=== PATIENT | female | born 1960 | race Caucasian/White ===

== ENCOUNTER 2018-08-19 06:28 | Day surgery (SDC) | payer OTHER ==
[~2018-08-19] VITALS: Ht 154.9 cm; Wt 76.7 kg
[2018-08-19] MEDS ORDERED: HYDR-3320 PO (07:10)
[2018-08-19] MEDS ORDERED: LIDOCAINE 2% 100 MG/5 ML UJET TP ONE (07:51)
[2018-08-19] MEDS ORDERED: KETOROLAC 30 MG/ML VIAL ONE (07:51)
== END 2018-08-19 08:53 | disposition home or self-care (01) ==
LOC: MDS 06:28 → MMU 06:31 → MDS 08:53
PROVIDERS: ATTEND Internal Medicine Gastroenterology
DX: Z12.11 Encounter for screening for malignant neoplasm of colon (principal); K57.30 Diverticulosis of large intestine without perforation or abscess without bleeding; D12.3 Benign neoplasm of transverse colon; I10 Essential (primary) hypertension; Z98.890 Other specified postprocedural states; Z90.49 Acquired absence of other specified parts of digestive tract; Z79.82 Long term (current) use of aspirin; Z79.899 Other long term (current) drug therapy; Z68.30 Body mass index [BMI] 30.0-30.9, adult; Z87.891 Personal history of nicotine dependence; Z79.01 Long term (current) use of anticoagulants
CPT/HCPCS: 45385; J1885

== ENCOUNTER 2019-11-12 15:56 | Emergency (ER) | payer OTHER ==
[~2019-11-12] VITALS: Ht 154.9 cm; Wt 76.7 kg
[~2019-11-12 15:56] MED LIST: HYDR-3320 PO
[2019-11-12 16:05] VITALS: BP 96/67
--- NOTE | 2019-11-12 16:15 | NUR ---
59 Y/O FEMALE C/O DIZZINESS, HEADACHE, AND GENERALIZED WEAKNESS X 3 WKS. +N/V FOR THE PAST 3 DAYS. DENIES DIARRHEA. 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 PT SPOKE TO ONCOLOGIST TODAY AND TOLD HER TO PRESENT TO ER. RR EVEN AND UNLABORED, CALM AND PLEASANT. VSS. FAMILY AT BEDSIDE MEDHX: NONHODGKINS LYMPHOMA ALLERGIES: NKA
[2019-11-12] MEDS ORDERED: NACL 0.9% 1,000 ML IV ONE (16:20)
[2019-11-12] MEDS ORDERED: MORPHINE SULFATE 4 MG/ML SYR IVP ONE (16:20)
[2019-11-12] MEDS ORDERED: ONDANSETRON 4 MG/2 ML VIAL IVP ONE (16:20)
--- NOTE | 2019-11-12 16:21 | NUR ---
PT TO CT VIA [facility]
--- NOTE | 2019-11-12 16:30 | NUR ---
DR LUTZ AT BEDSIDE EXAMINING PT.
[2019-11-12 16:49] LABS: BASOPHILS # (AUTO) 0.1 K/uL (0.00-0.22); BASOPHILS % (AUTO) 0.6 % (0.0-2.0); EOSINOPHILS % (AUTO) 0.3 % (0.0-4.0); HEMATOCRIT 42.9 % (36-48); HEMOGLOBIN 14.5 g/dL (12.0-16.0); LYMPHOCYTES # (AUTO) 1.3 K/uL (2.5-16.5); LYMPHOCYTES % (AUTO) 12.2 % (20.5-51.1); MEAN CORPUSCULAR HEMOGLOBIN 32 pg (27-31); MEAN CORPUSCULAR HGB CONC 34 g/dL (33-37); MEAN CORPUSCULAR VOLUME 95.6 fL (80-94); MONOCYTES # (AUTO) 0.6 K/uL (0.8-1.0); MONOCYTES % (AUTO) 5.2 % (1.7-9.3); NEUTROPHILS % (AUTO) 81.7 % (42.2-75.2); PLATELET COUNT (AUTO) 307 K/uL (140-450); RED BLOOD CELL COUNT(AUTO) 4.49 MIL/uL (4.20-5.40); RED CELL DISTRIBUTION WIDTH 13.6 % (11.6-13.7)
[2019-11-12 17:09] LABS: ALBUMIN 3.9 g/dL (3.4-5.0); ANION GAP 14.3 (8-16); CARBON DIOXIDE 29.5 mmol/L (21-32); CREATININE 1.2 mg/dL (0.6-1.3); POTASSIUM 3.8 mmol/L (3.5-5.1); THYROID STIMULATING HORMONE 1.81 uIU/mL (0.34-3.74); TOTAL BILIRUBIN 0.3 mg/dL (0.0-1.0)
[2019-11-12 18:09] LABS: APPEARANCE,URINE CLEAR (CLEAR); BILIRUBIN,URINE NEGATIVE (NEGATIVE); BLOOD, URINE NEGATIVE (NEGATIVE); COLOR,URINE YELLOW (YELLOW); LEUKOCYTE ESTERASE ,URINE 1+ (NEGATIVE); NITRITE, URINE NEGATIVE (NEGATIVE); PH,URINE 7.5 (5.0-9.0); UGLUCOSE NEGATIVE (NEGATIVE)
[2019-11-12 18:25] LABS: RBC,URINE 0-5 /HPF (0-5)
--- NOTE | 2019-11-12 18:45 | NUR ---
SITTING UPRIGHT IN BED AWAKE AND ALERT, DENIES PAIN AT THIS TIME. VSS. WILL CONTINUE TO MONITOR
[2019-11-12 18:53] VITALS: BP 103/77
--- NOTE | 2019-11-12 18:53 | NUR ---
Patient discharged with v/s stable. Written and verbal after care instructions given and explained. Patient alert, oriented and verbalized understanding of instructions. Ambulatory with steady gait. All questions addressed prior to discharge. ID band removed. Patient advised to follow up with PMD. Rx of keflex and debrox given. Patient educated on indication of medication including possible reaction and side effects. Opportunity to ask questions provided and answered.
== END 2019-11-12 18:53 | disposition home or self-care (01) ==
LOC: MED 15:56
DX: N39.0 Urinary tract infection, site not specified (principal); R53.1 Weakness; H91.90 Unspecified hearing loss, unspecified ear; Z88.5 Allergy status to narcotic agent; Z79.899 Other long term (current) drug therapy; Z98.890 Other specified postprocedural states; Z85.72 Personal history of non-Hodgkin lymphomas
CPT/HCPCS: 36415; 70450; 80053; 81001; 84443; 85025; 87086; 96360; 99284; J7030; J2270; J2405

== ENCOUNTER 2019-11-17 23:55 | Inpatient (IN) | payer OTHER ==
[~2019-11-17] VITALS: Ht 154.9 cm; Wt 81.2 kg
[2019-11-18 00:10] VITALS: BP 130/77
--- NOTE | 2019-11-18 00:10 | NUR ---
TO BED # 07 AMBULATORY
--- NOTE | 2019-11-18 00:20 | NUR ---
PT C/O VOMITING BILE AND 7/10 EPIGASTRIC PAIN STARTING LAST NIGHT. STATES SHE WAS HERE A FEW DAYS AGO FOR A UTI AND STARTED THE ABX FOR IT SUNDAY; BUT SHE IS UNABLE TO KEEP ANY LIQUIDS DOWN. STATES PRECIPITATING FACTORS INCLUDE OVEREATING YESTERDAY; AND SHE HAS BEEN VOMITING SINCE. DENIES TAKING ANYTHING FOR THE PAIN. REPORTS NORMAL BMS. DENIES DIFFICULTY URINATING. DENIES BACK OR CHEST PAIN. VITALLY STABLE. RESTING UPRIGHT ON SIDE IN [facility].
[2019-11-18] MEDS ORDERED: ONDANSETRON 4 MG/2 ML VIAL IVP ONE (01:15)
[2019-11-18 01:25] LABS: BASOPHILS % (AUTO) 0.2 % (0.0-2.0); EOSINOPHILS % (AUTO) 0.3 % (0.0-4.0); HEMATOCRIT 44.7 % (36-48); HEMOGLOBIN 14.9 g/dL (12.0-16.0); LYMPHOCYTES # (AUTO) 0.9 K/uL (2.5-16.5); MEAN CORPUSCULAR HEMOGLOBIN 33 pg (27-31); MEAN CORPUSCULAR HGB CONC 33 g/dL (33-37); MEAN CORPUSCULAR VOLUME 97.8 fL (80-94); MONOCYTES # (AUTO) 0.3 K/uL (0.8-1.0); MONOCYTES % (AUTO) 2.4 % (1.7-9.3); NEUTROPHILS % (AUTO) 90.5 % (42.2-75.2); PLATELET COUNT (AUTO) 305 K/uL (140-450); RED BLOOD CELL COUNT(AUTO) 4.57 MIL/uL (4.20-5.40); RED CELL DISTRIBUTION WIDTH 13.5 % (11.6-13.7); WHITE BLOOD COUNT (AUTO) 13.3 K/uL (4.8-10.8)
[2019-11-18 01:35] LABS: LYMPHOCYTES % (AUTO) 6.6 % (20.5-51.1)
[2019-11-18 01:44] LABS: ALBUMIN 3.6 g/dL (3.4-5.0); ANION GAP 14.2 (8-16); CARBON DIOXIDE 31.5 mmol/L (21-32); POTASSIUM 3.7 mmol/L (3.5-5.1); TOTAL BILIRUBIN 0.5 mg/dL (0.0-1.0)
--- NOTE | 2019-11-18 02:04 | NUR ---
PT SLEEPING ON SIDE IN GURNEY; VSS. DENIES NAUSEA OR PAIN. FAMILY AT BEDSIDE. PROMPTED TO TRY TO URINATE FOR SAMPLE; OBTAINED SAMPLE. STEADY GAIT, DENIES DIZZINESS OR LIGHTHEADEDNESS. WILL CONTINUE TO MONITOR.
[2019-11-18 02:47] LABS: APPEARANCE,URINE SLIGHTLY CLOUDY (CLEAR); COLOR,URINE YELLOW (YELLOW)
[2019-11-18 02:48] LABS: BILIRUBIN,URINE NEGATIVE (NEGATIVE); BLOOD, URINE TRACE (NEGATIVE); LEUKOCYTE ESTERASE ,URINE NEGATIVE (NEGATIVE); NITRITE, URINE NEGATIVE (NEGATIVE); UGLUCOSE NEGATIVE (NEGATIVE)
--- NOTE | 2019-11-18 02:49 | NUR ---
CT TRANSPORTING PT VIA WC
[2019-11-18 02:51] LABS: WBC,URINE 0-5 /HPF (0-5)
--- NOTE | 2019-11-18 03:42 | NUR ---
PT RESTING COMFORTABLY ON SIDE; FAMILY MEMBER AT BEDSIDE. VITALLY STABLE. NO SIGNIFICANT CHANGES. WILL CONTINUE TO MONITOR.
[2019-11-18] MEDS ORDERED: ASPI-1822 PO (05:18)
[2019-11-18] MEDS ORDERED: CEPH250C16 PO (05:23)
--- NOTE | 2019-11-18 05:37 | NUR ---
PT RESTING COMFORTABLY IN BED; REQUESTED ICE CHIPS TO WET MOUTH; OKAY'ED BY GAVE PT A COUPLE ICE CHIPS. DENIES PAIN, N/V. VSS. WILL CONTINUE TO MONITOR.
--- NOTE | 2019-11-18 07:23 | NUR ---
REPORT GIVEN TO SOSA DIOR
[2019-11-18] MEDS ORDERED: MAGNESIUM OXIDE 400 MG TAB PO PRN (07:45)
[2019-11-18] MEDS ORDERED: MAG SULF 2000 MG/WATER PREMIX 50 ML IV PRN (07:45)
[2019-11-18] MEDS ORDERED: POTASSIUM CHLORIDE 10 MEQ TABER PO PRN (07:45)
[2019-11-18] MEDS ORDERED: ACETAMINOPHEN 325 MG TAB PO PRN (07:45)
[2019-11-18] MEDS ORDERED: ACETAMINOPHEN 650 MG SUPP RC PRN (07:45)
[2019-11-18 07:50] VITALS: BP 145/67
--- NOTE | 2019-11-18 07:50 | NUR ---
RECEIVED PT FROM ER NURSE VIA WHEELCHAIR WITH , PT IS AWAKE, ALERT AND ORIENTED, AMBULATED TO THE BED WITH A PERIPHERAL LINE ON THE RT AC G. 20 ON SALINE LOCK, PT C/O PAIN RATE OF 7/10 ON HER MID-ABDOMEN, WILL MEDICATE, SKIN IS INTACT, V/S TAKEN AND BP IS 145/67, PULSE IS 69, TEMP. IS 98.1, O2 SATURATION IS 94% ON ROOM AIR, NO SIG OF DISTRESS NOTED AND WILL CONTINUE TO BE MONITORED.
--- NOTE | 2019-11-18 07:56 | NUR ---
Patient will be admitted to care of DR TORRES. Admited to MED SURG. Will go to [id number]. Belongings list completed. Report to [facility].
--- NOTE | 2019-11-18 08:00 | NUR ---
MRSA SWAB DONE AND SAMPLE WAS SENT TO LAB.
--- NOTE | 2019-11-18 08:30 | NUR ---
PAGED DR. ROWE TO NOTIFY MD OF PT PAIN RATE OF 04/02, AWAITING FOR MD CALL BACK.
--- NOTE | 2019-11-18 10:30 | NUR ---
PT IS IN THE BATHROOM NOW AND MADE A BOWEL MOVEMENT, SMALL AMOUNT AND SOFT.
--- NOTE | 2019-11-18 10:47 | NUR ---
Ice Skating Teacher Note: Basic Screen: Yes High Risk DC Screen [place]: FAY Crespo Relationship: Pre-Admission Living Arrangements: Lives with Other Prior ADL Independent Current Home Health Name/Tel: N/A Current DME/02 Name/Tel: N/A Current Hospice Name/Tel: N/A Current Dialysis Name/Tel: N/A Healthcare Decision Maker: Patient Advance Directive No - REFUSED Physician Orders for Life Sustaining Treatment Form No Patient/Family Have Educational Needs No Information Taught: Advance Directive Person Taught: Patient Teaching Tools: Verbal Factors Affecting Learning: None Participation Level: Refused Evaluation: Verbalizes Understanding Discipline: Case Mgt/Social Svcs Tentative Discharge Plan/Destination: No Needs Identified Will require assistance post discharge: No Referred to Commutator Tester: No Tentative Discharge Plan Summary: Patient is a 59-year-old female admitted for small bowel obstruction. Patient has PMHX of cancer (non-hodgekins lymphoma). Patient was admitted from home where she lives with her daughter, grandson, and . SW met with patient at bedside to verify demographics. Patient stated that she is independent with all ADLs and reports no history of mental health or substance abuse. Patient's tentative discharge plan is to return home. No further needs identified. Signature: COSMO Armendariz Date: Nov 18, 2019 Time: 10:45
--- NOTE | 2019-11-18 10:55 | NUR ---
DC PLANNIN YRS OLD FEMALE PATIENT WAS ADMITTED FROM HOME WITH A DX OF SMALL BOWEL OBSTRUCTION. PT HAS A HX OF CHOLECYSTECTOMY. CT ABD/PELVIS SHOWED PARTIAL SBO ,BILATERAL RENAL CYST ,UMBILICAL HERNIA AND COLONIC DIVERTICULITIS. ADMINISTERED AMPICILLIN ABX, ZOFRAN FOR N/V AND MORPHINE FO PAIN CONTROL AND GI CONSULT . DC PLAN TO GO HOME WHEN STABLE CM TO FOLLOW.
--- NOTE | 2019-11-18 11:35 | NUR ---
PAGED DR. ROWE ABOUT ADMISSION OF PT. AND PAIN RATE OF 04/02.
--- NOTE | 2019-11-18 11:54 | NUR ---
INFORMED CHARGE NURSE, THAT MD WAS PAGED TWICE ALREADY AND NO CALL BACK YET.
[2019-11-18 12:00] VITALS: BP 121/76
[2019-11-18] MEDS ORDERED: AMPICILLIN/SULBACTAM 3 GM in NACL 0.9% 100 ML IV SCH (12:00)
--- NOTE | 2019-11-18 15:18 | NUR ---
PATIENT HAS BEEN SCREENED AND CATEGORIZED MODERATE NUTRITION RISK. PATIENT WILL BE SEEN WITHIN 3-5 DAYS OF ADMISSION. 11/20/19 11/22/[address]
[2019-11-18 16:00] VITALS: BP 137/70
[2019-11-18] MEDS ORDERED: HYDROmorphone 1 MG/ML AMP IVP PRN (16:10)
[2019-11-18] MEDS: KETOROLAC 15 MG/ML VIAL IVP PRN ×2 (16:25→22:37)
--- NOTE | 2019-11-18 16:25 | NUR ---
PT C/O PAIN RATE OF 6/10 AND PAIN MEDICATION WAS GIVEN VIA IV PUSH, BP IS 137/70, PULSE IS 69, O2 SATURATION IS 97%, WILL RE-ASSESS PAIN AND MONITOR PT.
--- NOTE | 2019-11-18 16:30 | NUR ---
PT IS OFF THE UNIT NOW FOR A CHEST X-RAY.
--- NOTE | 2019-11-18 16:42 | NUR ---
PT IS BACK TO ROOM NOW FROM CHEST X-RAY.
--- NOTE | 2019-11-18 16:46 | NUR ---
DR. ROWE MADE A TELEPHONE ORDER TO START PT ON CLEAR LIQUID DIET AND ADVANCE DIET TOLERATED. VERIFIED AND READ BACK, WILL CARRY OUT.
[2019-11-18] MEDS: PANTOPRAZOLE 40 MG INJ VIAL IVP SCH (16:49)
[2019-11-18] MEDS: DEXT 5% / NACL 0.45% 1,000 ML IV SCH (16:49)
--- NOTE | 2019-11-18 16:49 | NUR ---
D5 1/2 NS WAS STARTED TO PT NOW, AND PROTONIX IV WAS GIVEN WELL VIA IV PUSH. WILL MONITOR PT.
--- NOTE | 2019-11-18 19:20 | NUR ---
ENDORSED PT TO CATALYST OPERATOR GASOLINE NURSE FOR CONTINUITY OF CARE.
--- NOTE | 2019-11-18 19:25 | NUR ---
RECEIVED PT IN STABLE CONDITION FROM AM NURSE. AWAKE,ALERT AND ORIENTED X4. MED SURG PT. WITH NO C/O ANY ABDOMINAL PAIN NOTED. AMBULATORY TO THE BATHROOM. IVF INFUSING WELL ON THE RT AC G#20 . CLEAR AND PATENT. PLAN OF CARE DISCUSSED AND VERBALIZED UNDERSTANDING. BED ON LOW POSITION. SIDE RAILS UP X2 AND CALL LIGHT PLACED WITHIN REACH. WILL CONTINUE TO MONITOR.
[2019-11-18] MEDS: ONDANSETRON 4 MG/2 ML VIAL IVP PRN (22:32)
--- NOTE | 2019-11-18 22:32 | NUR ---
PT VOMITED GREENISH LIQUIDS. MEDICATED WITH ZOFRAN IVP ORDERED. WILL CONTINUE TO MONITOR.
--- NOTE | 2019-11-19 00:15 | NUR ---
VITAL SIGNS STABLE. NO C/O ANY NAUSEA /VOMITING AT THIS TIME. WILL CONTINUE TO MONITOR.
[2019-11-19 00:30] VITALS: BP 130/70
--- NOTE | 2019-11-19 02:00 | NUR ---
ASLEEP. NO S/S ANY DISCOMFORT /PAIN NOTED. WILL CONTINUE TO MONITOR.
--- NOTE | 2019-11-19 04:00 | NUR ---
ASSISTED TO BATHROOM. NO C/O NAUSEA/VOMITING NOTED.
[2019-11-19] MEDS: DEXT 5% / NACL 0.45% 1,000 ML IV SCH ×2 (04:35→17:05)
--- NOTE | 2019-11-19 06:00 | NUR ---
ASLEEP. NO S/S OF ANY DISCOMFORT NOTED.
--- NOTE | 2019-11-19 07:25 | NUR ---
ENDORSED PT IN STABLE CONDITION TO AM NURSE FOR CONTINUITY OF CARE.
--- NOTE | 2019-11-19 07:30 | NUR ---
RECEIVED BEDSIDE REPORT FROM NIGHTSHIFT NURSE. PT RESTING IN BED UPON ARRIVAL. RESPIRATIONS EVEN AND UNLABORED WITH NO SOB OR RESPIRATORY DISTRESS. SKIN WARM AND DRY TO TOUCH. IV SITE IN RIGHT HAND 22G IS CLEAN, DRY, AND INTACT. SAFETY MEASURES IN PLACE. WILL CONTINUE TO MONITOR
[2019-11-19 07:43] LABS: BASOPHILS % (AUTO) 0.1 % (0.0-2.0); EOSINOPHILS # (AUTO) 0.1 K/uL (0-0.4); EOSINOPHILS % (AUTO) 0.8 % (0.0-4.0); HEMATOCRIT 38.9 % (36-48); HEMOGLOBIN 12.8 g/dL (12.0-16.0); LYMPHOCYTES # (AUTO) 1.3 K/uL (2.5-16.5); LYMPHOCYTES % (AUTO) 9.4 % (20.5-51.1); MEAN CORPUSCULAR HEMOGLOBIN 32 pg (27-31); MEAN CORPUSCULAR HGB CONC 33 g/dL (33-37); MEAN CORPUSCULAR VOLUME 97.9 fL (80-94); MONOCYTES # (AUTO) 1.2 K/uL (0.8-1.0); MONOCYTES % (AUTO) 8.7 % (1.7-9.3); PLATELET COUNT (AUTO) 270 K/uL (140-450); RED BLOOD CELL COUNT(AUTO) 3.97 MIL/uL (4.20-5.40); RED CELL DISTRIBUTION WIDTH 13.4 % (11.6-13.7); WHITE BLOOD COUNT (AUTO) 13.6 K/uL (4.8-10.8)
[2019-11-19 08:00] VITALS: BP 125/80
[2019-11-19 08:18] LABS: ANION GAP 9.7 (8-16); CARBON DIOXIDE 31.8 mmol/L (21-32); POTASSIUM 3.5 mmol/L (3.5-5.1); TOTAL BILIRUBIN 0.5 mg/dL (0.0-1.0)
[2019-11-19] MEDS: KETOROLAC 15 MG/ML VIAL IVP PRN ×3 (08:44→23:51)
[2019-11-19] MEDS: PANTOPRAZOLE 40 MG INJ VIAL IVP SCH (08:44)
[2019-11-19] MEDS: ONDANSETRON 4 MG/2 ML VIAL IVP PRN ×2 (08:44→15:04)
--- NOTE | 2019-11-19 08:49 | NUR ---
ADMINISTERED SCHED MED PRESCRIBED PER MD ORDER. PT TOLERATED WELL. MEDICATION EDUCATION PERFORMED. PT VERBALIZED UNDERSTANDING. SAFETY MEASURES IN PLACE. WILL CONTINUE TO MONITOR.
--- NOTE | 2019-11-19 10:30 | NUR ---
HOURLY ROUNDING. FAMILY AT BEDSIDE. PT RESTING IN BED UPON ARRIVAL. RESPIRATIONS EVEN AND UNLABORED WITH NO SOB OR RESPIRATORY DISTRESS. SKIN WARM AND DRY TO TOUCH. SAFETY MEASURES IN PLACE. WILL CONTINUE TO MONITOR
--- NOTE | 2019-11-19 12:19 | NUR ---
PT ASLEEP IN BED. RESPONSIVE TO VERBAL AND TACTILE STIMULI. ABLE TO MAKE NEEDS KNOWN. RESPIRATIONS EVEN AND UNLABORED WITH NO SOB OR RESPIRATORY DISTRESS. SKIN WARM AND DRY TO TOUCH. SAFETY MEASURES IN PLACE. WILL CONTINUE TO MONITOR
--- NOTE | 2019-11-19 13:54 | NUR ---
PT WHEELED OUT FOR X-RAY. SAFETY MEASURES IN PLACE. WILL CONTINUE TO MONITOR.
--- NOTE | 2019-11-19 14:15 | NUR ---
PT RETURNED FROM X-RAY. SAFETY MEASURES IN PLACE. WILL CONTINUE TO MONITOR.
--- NOTE | 2019-11-19 15:04 | NUR ---
PT COMPLAINED OF PAIN AND NAUSEA. PRN PAIN MEDICATION AND ANTINAUSEA MEDICATION ADMINISTERED ORESCRIBED PER MD ORDER. MEDICATION EDUCATION PERFORMED. PT VERBALIZED UNDERSTANDING. SAFETY MEASURES IN PLACE. WILL CONTINUE TO MONITOR.
--- NOTE | 2019-11-19 15:55 | NUR ---
ENDORSED TO ARTUR AT BEDSIDE. PT RESTING IN BED UPON ARRIVAL. RESPIRATIONS EVEN AND UNLABORED WITH NO SOB OR RESPIRATORY DISTRESS. SKIN WARM AND DRY TO TOUCH. SAFETY MEASURES IN PLACE. PT IS STABLE
[2019-11-19 16:00] VITALS: BP 127/66
--- NOTE | 2019-11-19 16:00 | NUR ---
RECEIVED PT FROM GRAHAM. PT IN BED, AAOX4 NO DISTRESS NOTED, DENIES PAIN. RESPIRATIONS EVEN AND UNLABORED ON ROOM AIR. IV IN PLACE IN RIGHT WRIST PATENT AND ASYMPTOMATIC, INFUSING PER ORDER. SKIN INTACT. SAFETY MEASURES IN PLACE. CALL LIGHT WITHIN REACH. WILL CONTINUE TO MONITOR.
--- NOTE | 2019-11-19 18:45 | NUR ---
NG TUBE INSERTED. AFTER INSERTION, DR ALONSO NOTICED PT WAS UNABLE TO BE SUCTIONED THROUGH NGT DUE TO FOLLOWTHROUGH PROCEDURE WITH CONTRAST. NGT STILL IN PLACE AT TIME OF ENDORSEMENT. SHANK PAPERER WILL TO EVALUATE WHETHER TO REMOVE NGT OR LEAVE IN PLACE. PT IN STABLE CONDITION
--- NOTE | 2019-11-19 19:15 | NUR ---
ENDORSED PT TO NIGHT NURSE IN STABLE CONDITION FOR CONTINUITY OF CARE.
--- NOTE | 2019-11-19 19:16 | NUR ---
RECD. RESTING IN BED, AWAKE, A/OX4. RESPIRATION EVEN AND UNLABORED. WITH NGT IN PLACED, RIGHT NARES WITH YELLOWISH FLUID. SPIV OF D51/2 NS AT 80 ML/HR INFUSING, RIGHT HAND G22. WAITING FOR KUB TO BE DONE TONIGHT. PLAN OF CARE FOR THE SHIFT DISCUSSED. VERBALIZED UNDERSTANDING. DENIES PAIN 0/10. SISTER AT THE BEDSIDE.
--- NOTE | 2019-11-19 20:00 | NUR ---
Patient's Plan of Care was discussed and reviewed with BACK STAYER: STEPHANIE GONZALEZ
--- NOTE | 2019-11-19 20:15 | NUR ---
SMALL BOWEL SERIES DONE BY HEAVY LIFT RIGGER.
--- NOTE | 2019-11-19 22:00 | NUR ---
INFORMED CHARGE NURSE OF RESULT OF KUB. PATIENT DOES NOT WANT NGT TO BE TAKEN OUT IF THERE'S A POSSIBILITY FOR IT TO BE PUT BACK TOMORROW. INFORMED SHE IS SCHEDULED FOR SURGERY TOMORROW AT 1030.
[2019-11-20] VITALS: BP 107/63
[2019-11-20 04:59] LABS: PROTHROMBIN TIME 10.1 secs (10.8-13.4)
[2019-11-20 05:01] LABS: ALBUMIN 2.9 g/dL (3.4-5.0); CARBON DIOXIDE 32.2 mmol/L (21-32); POTASSIUM 3.2 mmol/L (3.5-5.1); TOTAL BILIRUBIN 0.4 mg/dL (0.0-1.0)
[2019-11-20 05:08] LABS: BASOPHILS % (AUTO) 0.3 % (0.0-2.0); EOSINOPHILS # (AUTO) 0.1 K/uL (0-0.4); EOSINOPHILS % (AUTO) 1.7 % (0.0-4.0); HEMATOCRIT 35.2 % (36-48); HEMOGLOBIN 12.3 g/dL (12.0-16.0); LYMPHOCYTES # (AUTO) 1.7 K/uL (2.5-16.5); LYMPHOCYTES % (AUTO) 22.4 % (20.5-51.1); MEAN CORPUSCULAR HEMOGLOBIN 33 pg (27-31); MEAN CORPUSCULAR HGB CONC 35 g/dL (33-37); MONOCYTES # (AUTO) 0.7 K/uL (0.8-1.0); MONOCYTES % (AUTO) 9.7 % (1.7-9.3); NEUTROPHILS % (AUTO) 65.9 % (42.2-75.2); PLATELET COUNT (AUTO) 243 K/uL (140-450); RED BLOOD CELL COUNT(AUTO) 3.75 MIL/uL (4.20-5.40); RED CELL DISTRIBUTION WIDTH 13.2 % (11.6-13.7); WHITE BLOOD COUNT (AUTO) 7.5 K/uL (4.8-10.8)
[2019-11-20] MEDS: DEXT 5% / NACL 0.45% 1,000 ML IV SCH ×2 (05:35→14:34)
--- NOTE | 2019-11-20 05:50 | NUR ---
K LEVEL - 3.2, MEDICATED WITH K-DUR 40 MEQ VIA NGT.
--- NOTE | 2019-11-20 07:14 | NUR ---
CONDITION REMAIN STABLE. ENDORSED TO AM SHIFT NURSE FOR CONTINUITY OF CARE.
--- NOTE | 2019-11-20 07:15 | NUR ---
RECEIVED REPORT FROM NIGHT NURSE. PT IN STABLE CONDITION, NO DISTRESS NOTED, DENIES PAIN AT THIS TIME. SKIN INTACT. ABDOMEN DISTENSION. RESPIRATIONS EVEN AND UNLABORED ON ROOM AIR. IV IN PLACE PATENT AND ASYMPTOMATIC INFUSING PER ORDER. SAFETY MEASURES IN PLACE. CALL LIGHT WITHIN REACH, BED IN LOW POSITION. WILL CONTINUE TO MONITOR.
[2019-11-20 08:00] VITALS: BP 113/62
--- NOTE | 2019-11-20 09:30 | NUR ---
RECEIVED CALL FROM DR ALONSO. SINCE WBC ARE NORMAL, PT HAD 2 LARGE BOWEL MOVEMENTS, PAIN HAS DECREASED AND 1700ML OUT OF NGT SUCTION, EX LAP SURGERY FOR TODAY CANCELED PER DR ALONSO. WILL CONTINUE TO MONITOR PT.
[2019-11-20] MEDS: PANTOPRAZOLE 40 MG INJ VIAL IVP SCH (09:50)
--- NOTE | 2019-11-20 11:41 | NUR ---
MEDICATIONS ADMINISTERED PER ORDER. PT TOLERATED WELL, NO DISTRESS NOTED. REPORTS PAIN AT TOLERABLE LEVEL. RESPIRATIONS EVEN AND UNLABORED ON ROOM AIR. WILL CONTINUE TO MONITOR.
[2019-11-20] MEDS: LEVOFLOXACIN 750 MG/D5W PREMIX 150 ML IV SCH (12:12)
--- NOTE | 2019-11-20 13:51 | NUR ---
PT IN BED AWAKE WITH FAMILY MEMBERS AT THE BEDSIDE. SAFETY MEASURES IN PLACE. CALL LIGHT WITHIN REACH, WILL CONTINUE TO MONITOR.
[2019-11-20] MEDS: metroNIDAZOLE 500 MG/NS PREMIX 100 ML IV SCH ×2 (14:35→22:53)
[2019-11-20] MEDS ORDERED: KCL 20 MEQ/WATER INJ PREMIX 200 ML IV PRN (14:35)
--- NOTE | 2019-11-20 15:15 | NUR ---
MEDICATIONS ADMINISTERED PER ORDER, PT TOLERATED WELL. NO DISTRESS NOTED, PAIN REPORTED AT TOLERABLE LEVEL. SAFETY MEASURES IN PLACE. CALL LIGHT WITHIN REACH, WILL CONTINUE TO MONITOR.
[2019-11-20 16:00] VITALS: BP 104/55
--- NOTE | 2019-11-20 17:23 | NUR ---
PT IN BED AWAKE IN COMPANY OF FAMILY MEMBERS. NO DISTRESS NOTED, DENIES PAIN. SAFETY MEASURES IN PLACE. CALL LIGHT WITHIN REACH, WILL CONTINUE TO MONITOR.
--- NOTE | 2019-11-20 19:21 | NUR ---
PT ENDORSED TO NIGHT NURSE FOR CONTINUITY OF CARE.
--- NOTE | 2019-11-20 19:22 | NUR ---
RECD. RESTING IN BED, AWAKE, A/OX4. RESPIRATION EVEN AND UNLABORED. NGT IN PLACED, CONNECTED TO LOW INTERMITTENT SUCTION, DRAINING VERY MINIMAL AMOUNT OF GREENISH FLUID. IV OF D5 1/2 NS AT 80 ML/HR, RIGHT HAND G22. ABDOMEN SOFT, NON-TENDER. PLAN OF CARE FOR THE SHIFT DISCUSSED. VERBALIZED UNDERSTANDING. DENIES PAIN 0/10. AT THE BEDSIDE.
--- NOTE | 2019-11-20 21:00 | NUR ---
SITTING IN BED, WANTS NGT TO BE TAKEN OUT, ADVISED TO WAIT UNTIL TOMORROW TO BE ABLE TO OBSERVE OUTPUT.
--- NOTE | 2019-11-20 23:40 | NUR ---
PLAN OF CARE DISCUSSED WITH STEPHANIE GONZALEZ LVN.
[2019-11-21] VITALS: BP 127/65
--- NOTE | 2019-11-21 | NUR ---
SLEEPING COMFORTABLY IN BED.
--- NOTE | 2019-11-21 02:00 | NUR ---
AWAKE IN BED, CHECKED NGT, ALREADY OUT. ACCIDENTALLY PULLED OUT NGT. MINIMAL NGT OUTPUT NOTED, 50 ML SINCE BEGINNING OF SHIFT.
--- NOTE | 2019-11-21 04:00 | NUR ---
ASSISTED OUT OF BED TO VOID IN THE BR. BACK TO BED AFTER VOIDING. ADVISED TO GO BACK TO SLEEP.
[2019-11-21] MEDS: metroNIDAZOLE 500 MG/NS PREMIX 100 ML IV SCH ×2 (05:57→15:58)
--- NOTE | 2019-11-21 07:00 | NUR ---
CONDITION REMAIN STABLE. WILL ENDORSED TO AM SHIFT NURSE FOR CONTINUITY OF CARE.
[2019-11-21 07:08] LABS: BASOPHILS % (AUTO) 0.2 % (0.0-2.0); EOSINOPHILS # (AUTO) 0.2 K/uL (0-0.4); EOSINOPHILS % (AUTO) 2.5 % (0.0-4.0); HEMATOCRIT 36.6 % (36-48); HEMOGLOBIN 12.8 g/dL (12.0-16.0); LYMPHOCYTES # (AUTO) 1.4 K/uL (2.5-16.5); LYMPHOCYTES % (AUTO) 15.9 % (20.5-51.1); MEAN CORPUSCULAR HEMOGLOBIN 33 pg (27-31); MEAN CORPUSCULAR HGB CONC 35 g/dL (33-37); MEAN CORPUSCULAR VOLUME 94.2 fL (80-94); MONOCYTES # (AUTO) 0.8 K/uL (0.8-1.0); MONOCYTES % (AUTO) 9.2 % (1.7-9.3); NEUTROPHILS # (AUTO) 6.4 K/uL (1.8-7.7); NEUTROPHILS % (AUTO) 72.2 % (42.2-75.2); PLATELET COUNT (AUTO) 263 K/uL (140-450); RED BLOOD CELL COUNT(AUTO) 3.88 MIL/uL (4.20-5.40); RED CELL DISTRIBUTION WIDTH 13.2 % (11.6-13.7); WHITE BLOOD COUNT (AUTO) 8.8 K/uL (4.8-10.8)
--- NOTE | 2019-11-21 07:15 | NUR ---
RECEIVED REPORT FROM DE ICER NURSE STEPHANIE FOR CONTINUITY OF CARE. PT IN STABLE CONDITION. RESPIRATIONS EVEN AND UNLABORED, ROOM AIR. IV INTACT AND PATENT. SAFETY MEASURES IN PLACE. BED IN LOW POSITION. CALL LIGHT AT BEDSIDE. WILL CONTINUE TO MONITOR.
[2019-11-21 07:41] LABS: ALBUMIN 2.8 g/dL (3.4-5.0); CARBON DIOXIDE 29.7 mmol/L (21-32); POTASSIUM 3.7 mmol/L (3.5-5.1); TOTAL BILIRUBIN 0.3 mg/dL (0.0-1.0)
[2019-11-21] MEDS ORDERED: POTASSIUM CHL 20 MEQ/NACL 0.9% 1,000 ML IV SCH (07:50)
[2019-11-21 08:00] VITALS: BP 126/69
[2019-11-21] MEDS: PANTOPRAZOLE 40 MG INJ VIAL IVP SCH (10:01)
[2019-11-21] MEDS: LEVOFLOXACIN 750 MG/D5W PREMIX 150 ML IV SCH (12:40)
--- NOTE | 2019-11-21 15:50 | NUR ---
CONTACTED DR. ALONSO REGARDING DR. ROWE'S D/C ORDER IF OKAY WITH GENERAL SX. DR. ALONSO'S MEDICAL STUDENT WILL PASS ON THE MESSAGE (DR. ALONSO IS IN SX RIGHT NOW AND WILL CALL US BACK). RAPHAEL ASSIGNED MADE AWARE.
--- NOTE | 2019-11-21 16:05 | NUR ---
11/21/19 RD INITIAL ASSESSMENT COMPLETED PLEASE REFER TO NUTRITION ASSESSMENT UNDER CARE ACTIVITY FOR ESTIMATED NUTRITIONAL NEEDS. 1. CONTINUE FULL LIQUID DIET TOLERATED 2. IF/WHEN MEDICALLY STABLE GRADUALLY ADVANCE TO SOFT CARDIAC DIET 3. RD TO FOLLOW-UP 3-5 DAYS, MODERATE RISK NICK WELLS, LEONA
--- NOTE | 2019-11-21 19:15 | NUR ---
RECEIVED REPORT FROM INSTALL TECHNICIAN NURSE STEPHANIE FOR CONTINUITY OF CARE. PT IN STABLE CONDITION. RESPIRATIONS EVEN AND UNLABORED, ROOM AIR. IV INTACT AND PATENT. SAFETY MEASURES IN PLACE. BED IN LOW POSITION. CALL LIGHT AT BEDSIDE. WILL CONTINUE TO MONITOR. Addendum: 11/21/19 at 2003 by Ranjana Dela Cruz RN WRONG DOCUMENTATION
== END 2019-11-21 18:30 | disposition home or self-care (01) | DRG 247 ==
LOC: MED 23:55 → MTU 11-18 05:49
PROVIDERS: ADMIT Hospitalist; ATTEND Hospitalist
PROC: 0D9670Z Drainage of Stomach with Drainage Device, Via Natural or Artificial Opening (ICD-10-PCS; principal; 2019-11-19)
DX: K56.600 Partial intestinal obstruction, unspecified as to cause (principal); J69.0 Pneumonitis due to inhalation of food and vomit; C85.90 Non-Hodgkin lymphoma, unspecified, unspecified site; K76.0 Fatty (change of) liver, not elsewhere classified; K52.9 Noninfective gastroenteritis and colitis, unspecified; E66.9 Obesity, unspecified; E87.6 Hypokalemia; D72.829 Elevated white blood cell count, unspecified; E78.5 Hyperlipidemia, unspecified; I10 Essential (primary) hypertension; K27.9 Peptic ulcer, site unspecified, unspecified as acute or chronic, without hemorrhage or perforation; N39.0 Urinary tract infection, site not specified; Z90.49 Acquired absence of other specified parts of digestive tract; Z68.33 Body mass index [BMI] 33.0-33.9, adult; Z79.899 Other long term (current) drug therapy; Z88.5 Allergy status to narcotic agent
CPT/HCPCS: 36415; 71046; 74018; 74250; 80053; 81001; 83690; 85025; 85610; 85730; 86886; 86900; 86901; 87081; 87086; 93005; 96374; 99285; C9113; J0295; J1170; J1885; J1956; J2405; J3480; J3490; J7030; Q0092; Q9967

== ENCOUNTER 2020-04-08 13:24 | Emergency (ER) | payer OTHER ==
[~2020-04-08] VITALS: Ht 154.9 cm; Wt 78.9 kg
[~2020-04-08 13:24] MED LIST changes: +ASPI-1822 PO
[2020-04-08 13:28] VITALS: BP 132/74
--- NOTE | 2020-04-08 13:34 | NUR ---
Patient ambulated to bed 11. RN evaluating patient at bedside.
--- NOTE | 2020-04-08 13:36 | NUR ---
PATIENT AMBULATED TO BED 11.
[2020-04-08] MEDS ORDERED: BACITRACIN OINT 500 UNITS/GM PKT TP ONE (13:45)
--- NOTE | 2020-04-08 14:03 | NUR ---
XRAY AT BEDSIDE
--- NOTE | 2020-04-08 14:03 | NUR ---
C/O R KNEE PAIN S/P MECHANICAL FALL ON SIDEWALK X45 MIN AGO. MILD SWELLING NOTED BELOW R KNEE. ABRAISON NOTED TO R KNEE. PT IS AMBULATORY WITH PAIN. PT SITTING IN CHAIR AT BEDSIDE.
[2020-04-08 14:50] VITALS: BP 132/74
--- NOTE | 2020-04-08 14:50 | NUR ---
Patient discharged with v/s stable. Written and verbal after care instructions given and explained. Patient alert, oriented and verbalized understanding of instructions. Ambulatory with steady gait. All questions addressed prior to discharge. ID band removed. Patient advised to follow up with PMD. Rx of IBUPROFEN, BACITRACIN given. Patient educated on indication of medication including possible reaction and side effects. Opportunity to ask questions provided and answered.
== END 2020-04-08 14:50 | disposition home or self-care (01) ==
LOC: MED 13:24
DX: S83.8X2A Sprain of other specified parts of left knee, initial encounter (principal); W18.39XA Other fall on same level, initial encounter; Y93.89 Activity, other specified; Y92.89 Other specified places as the place of occurrence of the external cause; Y99.8 Other external cause status; Z88.5 Allergy status to narcotic agent; I10 Essential (primary) hypertension; Z79.82 Long term (current) use of aspirin; Z90.49 Acquired absence of other specified parts of digestive tract; Z98.890 Other specified postprocedural states; Z85.89 Personal history of malignant neoplasm of other organs and systems
CPT/HCPCS: 73560; 99283; Q0092

== ENCOUNTER 2022-12-29 09:11 | Emergency (ER) | payer OTHER ==
[~2022-12-29] VITALS: Ht 154.9 cm; Wt 80.3 kg
[2022-12-29 09:16] VITALS: BP 144/88
--- NOTE | 2022-12-29 09:32 | NUR ---
LAB AT BEDSIDE.
--- NOTE | 2022-12-29 09:48 | NUR ---
62 Y/O F BIB SELF C/O EPIGASTRIC PAIN 8 X1 DAY WITH 3 EPISODES OF NV, DENIES ANY BLOOD IN VOMITING OR DIARRHEA. PT STATES SHE BELIEVES SHE ATE TOO MUCH. DENIES FEVER OR CHILLS, BUT STATES THE WHOLE FAMILY WAS SICK RECENTLY WITH COUGH. PMH: HTN ALLERGY: CODEINE
[2022-12-29 09:52] LABS: BASOPHILS # (AUTO) 0.1 K/uL (0.00-0.22); BASOPHILS % (AUTO) 0.4 % (0.0-2.0); EOSINOPHILS # (AUTO) 0.1 K/uL (0-0.4); EOSINOPHILS % (AUTO) 0.4 % (0.0-4.0); HEMATOCRIT 39.6 % (36-48); HEMOGLOBIN 13.3 g/dL (12.0-16.0); LYMPHOCYTES # (AUTO) 1.2 K/uL (2.5-16.5); LYMPHOCYTES % (AUTO) 7.2 % (20.5-51.1); MEAN CORPUSCULAR HEMOGLOBIN 33 pg (27-31); MEAN CORPUSCULAR HGB CONC 34 g/dL (33-37); MEAN CORPUSCULAR VOLUME 97.1 fL (80-94); MONOCYTES # (AUTO) 0.3 K/uL (0.8-1.0); MONOCYTES % (AUTO) 1.9 % (1.7-9.3); NEUTROPHILS # (AUTO) 14.5 K/uL (1.8-7.7); NEUTROPHILS % (AUTO) 90.1 % (42.2-75.2); PLATELET COUNT (AUTO) 318 K/uL (140-450); RED BLOOD CELL COUNT(AUTO) 4.08 MIL/uL (4.20-5.40); RED CELL DISTRIBUTION WIDTH 12.8 % (11.6-13.7); WHITE BLOOD COUNT (AUTO) 16.1 K/uL (4.8-10.8)
--- NOTE | 2022-12-29 10:06 | NUR ---
DR ROWLAND AT BEDSIDE.
[2022-12-29 10:25] LABS: APPEARANCE,URINE CLEAR (CLEAR); BILIRUBIN,URINE NEGATIVE (NEGATIVE); BLOOD, URINE TRACE-I (NEGATIVE); COLOR,URINE YELLOW (YELLOW); LEUKOCYTE ESTERASE ,URINE NEGATIVE (NEGATIVE); NITRITE, URINE POSITIVE (NEGATIVE); PH,URINE 6.5 (5.0-9.0); UGLUCOSE NEGATIVE (NEGATIVE)
[2022-12-29 10:29] LABS: ALBUMIN 3.6 g/dL (3.4-5.0); CARBON DIOXIDE 29.4 mmol/L (21-32); POTASSIUM 3.4 mmol/L (3.5-5.1); TOTAL BILIRUBIN 0.4 mg/dL (0.0-1.0)
--- NOTE | 2022-12-29 11:13 | NUR ---
PT TO CT VIA [facility].
[2022-12-29] MEDS ORDERED: ACET-10509 PO (14:21)
[2022-12-29] MEDS ORDERED: CEPH-588 PO (14:21)
[2022-12-29] MEDS ORDERED: FAMO-90 PO (14:21)
--- NOTE | 2022-12-29 14:24 | NUR ---
DR ROWLAND AT BEDSIDE.
[2022-12-29 15:05] VITALS: BP 112/59
--- NOTE | 2022-12-29 15:06 | NUR ---
Patient discharged with v/s stable. Written and verbal after care instructions given and explained. Patient alert, oriented and verbalized understanding of instructions. Ambulatory with steady gait. All questions addressed prior to discharge. ID band removed. Patient advised to follow up with PMD. Rx of ACETAMINOPHEN TAB, CEPHALEXIN, FAMOTIDINE given. Opportunity to ask questions provided and answered.
--- NOTE | 2022-12-29 15:22 | NUR ---
The patient's care was reviewed and supervised by [place] [facility] ED, RN.
== END 2022-12-29 15:05 | disposition home or self-care (01) ==
LOC: MED 09:11
DX: N39.0 Urinary tract infection, site not specified (principal); K52.9 Noninfective gastroenteritis and colitis, unspecified; K57.30 Diverticulosis of large intestine without perforation or abscess without bleeding; I10 Essential (primary) hypertension; Z85.72 Personal history of non-Hodgkin lymphomas; Z79.899 Other long term (current) drug therapy; Z79.82 Long term (current) use of aspirin; Z88.5 Allergy status to narcotic agent
CPT/HCPCS: 36415; 74177; 80053; 81003; 83690; 85025; 99285; Q9967